=== PATIENT | male | born 1970 | race African-American/Black ===

== ENCOUNTER 2024-02-10 16:01 | Observation (INO) ==
[2024-02-10 20:34] LABS: ABS Eosinophils 0.1 10^3/uL (0.0-0.5); ABS Lymphocytes 3.3 10^3/uL (1.0-4.8); ABS Monocytes 0.6 10^3/uL (0.0-1.1); ABS Neutrophils 3.2 10^3/uL (1.5-7.6); Hemoglobin 9.9 g/dL (13.2-16.3); Lymphocyte % 44.8 %; Mean Corpuscular Hemoglobin 31.2 pg (27-33); Mean Corpuscular Volume 94.6 fL (80-97); Mean Platelet Volume 8.1 fL (7.5-11.2); Platelet Count 330 10^3/uL (150-450); Red Blood Count 3.18 10^6/uL (4.06-5.63); Red Cell Distribution Width 14.1 % (12-17); White Blood Count 7.3 10^3/uL (3.6-10.2)
[2024-02-10 21:02] LABS: Activated Partial Thrombo Time 29.5 seconds (26.0-38.0); INR 0.95 (0.83-1.13)
[2024-02-10 21:06] LABS: ALT 13 U/L (7-52); AST 13 U/L (13-39); Albumin 3.9 g/dL (3.2-5.2); Albumin/Globulin Ratio 1.2 (1-3); Alkaline Phosphatase 78 U/L (35-149); Anion Gap 11 mmol/L (2-16); Blood Urea Nitrogen 23 mg/dL (6-24); C Reactive Protein 3.81 mg/L (<8.01); CO2 Carbon Dioxide 24 mmol/L (22-32); Calcium 9.3 mg/dL (8.6-10.3); Chloride 98 mmol/L (101-111); Creatinine, Serum 1.03 mg/dL (0.67-1.17); Globulin 3.2 g/dL (2-4); Glucose 404 mg/dL (70-100); Potassium 3.6 mmol/L (3.5-5.0); Sodium 133 mmol/L (135-145); Total Bilirubin 0.1 mg/dL (0.2-1.0); Total Protein 7.1 g/dL (6.4-8.9); eGFR CKD-EPI 87.4 (>60)
[2024-02-10] MEDS: Orphenadrine Citrate INJ 30 mg/ml 2 ml VIAL (60 mg) IM ONE (21:58)
[2024-02-10 22:15] LABS: Creatine Kinase 99 U/L (10-223)
[2024-02-10] MEDS ORDERED: Vancomycin 1,000 MG in NS 0.9% 250 ml 250 ML IVPB SCH (23:00)
[2024-02-10 23:15] LABS: Alcohol, S < 13 mg/dL (<13)
[2024-02-10] MEDS: Vancomycin 1,000 MG - ED ONCE IVPB ONE (23:22)
[2024-02-11 01:46] LABS: Urine Benzodiazepine Screen None Detected (None Detect); Urine Cannabinoids Screen None Detected (None Detect); Urine Opiates Screen None Detected (None Detect)
[2024-02-11] MEDS: Iodixanol (CONTRAST) 320 MG/ML 100 ML SDV IV ONE (04:26)
[2024-02-11] MEDS ORDERED: Albuterol HFA INHALER 8 gm MDI INH PRN (05:50)
[2024-02-11 06:26] LABS: ABS Basophils 0.1 10^3/uL (0.0-0.1); ABS Eosinophils 0.2 10^3/uL (0.0-0.5); ABS Lymphocytes 2.8 10^3/uL (1.0-4.8); ABS Monocytes 0.7 10^3/uL (0.0-1.1); ABS Neutrophils 3.5 10^3/uL (1.5-7.6); ABS Nucleated RBC 0.01 10^3/ul; Eosinophil % 2.7 %; Hematocrit 29.1 % (38-53); Hemoglobin 10.2 g/dL (13.2-16.3); Lymphocyte % 38.5 %; Mean Corpuscular Hemoglobin 32.4 pg (27-33); Mean Corpuscular Hgb Conc 35.1 g/dL (31-36); Mean Corpuscular Volume 92.4 fL (80-97); Mean Platelet Volume 7.8 fL (7.5-11.2); Nucleated Red Blood Cells % 0.1 %/100WBC (0.0-0.8); Platelet Count 295 10^3/uL (150-450); Red Blood Count 3.15 10^6/uL (4.06-5.63); Red Cell Distribution Width 14.2 % (12-17); White Blood Count 7.2 10^3/uL (3.6-10.2)
[2024-02-11] MEDS: Enoxaparin 40 MG/0.4 ML SYR SUBCUT SCH (06:41)
[2024-02-11 07:04] LABS: Albumin 3.4 g/dL (3.2-5.2); Albumin/Globulin Ratio 1.1 (1-3); Creatinine, Serum 0.93 mg/dL (0.67-1.17); Globulin 3.1 g/dL (2-4); Magnesium 1.5 mg/dL (1.9-2.7); Potassium 4.1 mmol/L (3.5-5.0); Total Bilirubin 0.3 mg/dL (0.2-1.0); Total Protein 6.5 g/dL (6.4-8.9); eGFR CKD-EPI 98.8 (>60)
[2024-02-11] MEDS ORDERED: Dextrose 50% Syringe 50 ml 25 GM/50 ML SYRINGE IV PUSH PRN (07:12)
[2024-02-11] MEDS: Insulin GLARGINE 100 un/ml 10 ml VIAL SUBCUT SCH (10:27)
[2024-02-12 09:21] LABS: Ferritin 19.5 ng/mL (24-336)
[2024-02-12] MEDS: Ferric Gluconate IV 250 MG in NS 0.9% 250 ml 200 ML IVPB SCH (11:01)
[2024-02-12 13:28] VITALS: BP 159/76
[2024-02-12 17:42] LABS: % CD3 84 % (58-86); % CD4 30 % (32-64); % CD8 49 % (11-40); 4/8 H/S Ratio 0.6 (>=0.9); Absolute CD45 Count 3.29 thou/mcL (0.82-2.84); CD3 2751 cells/mcL (550-2202); CD4 995 cells/mcL (365-1437); CD8 1629 cells/mcL (117-846)
== END 2024-02-12 14:30 | disposition home or self-care (01) ==
LOC: EDHOLD 16:01 → ED 16:01 → SUATTDRO 02-11 05:49 → MED 02-11 16:43
PROVIDERS: ADMIT Internal Medicine; ATTEND Student in an Organized Health Care Education/Training Program

== ENCOUNTER 2024-03-10 22:37 | Observation (INO) ==
[2024-03-10 23:28] LABS: Venous Bicarbonate HCO3 25.3 mmol/L (24-28)
[2024-03-10 23:30] LABS: ABS Basophils 0.2 10^3/uL (0.0-0.1); ABS Lymphocytes 2.1 10^3/uL (1.0-4.8); ABS Monocytes 0.9 10^3/uL (0.0-1.1); ABS Neutrophils 8.4 10^3/uL (1.5-7.6); ABS Nucleated RBC 0.01 10^3/ul; Eosinophil % 0.4 %; Hematocrit 32.5 % (38-53); Hemoglobin 10.5 g/dL (13.2-16.3); Lymphocyte % 17.8 %; Mean Corpuscular Hemoglobin 30.6 pg (27-33); Mean Corpuscular Hgb Conc 32.4 g/dL (31-36); Mean Corpuscular Volume 94.5 fL (80-97); Mean Platelet Volume 9.3 fL (7.5-11.2); Nucleated Red Blood Cells % 0.1 %/100WBC (0.0-0.8); Platelet Count 223 10^3/uL (150-450); Red Blood Count 3.44 10^6/uL (4.06-5.63); Red Cell Distribution Width 13.8 % (12-17); White Blood Count 11.5 10^3/uL (3.6-10.2)
[2024-03-10 23:45] LABS: INR 1.02 (0.83-1.13)
[2024-03-10 23:58] LABS: Albumin/Globulin Ratio 1.1 (1-3); Calcium 9.9 mg/dL (8.6-10.3); Creatinine, Serum 2.39 mg/dL (0.67-1.17); Globulin 3.5 g/dL (2-4); Potassium 4.7 mmol/L (3.5-5.0); Total Bilirubin 0.4 mg/dL (0.2-1.0); Total Protein 7.5 g/dL (6.4-8.9); eGFR CKD-EPI 31.8 (>60)
[2024-03-11] MEDS: Lactated Ringers 1000 ml BAG 2,000 ML IV ONE (00:16)
[2024-03-11 00:56] LABS: High Sensitivity Troponin 1 Hr 9 pg/mL (<20)
[2024-03-11] MEDS ORDERED: Senna TAB 8.6 mg TAB PO PRN (01:36)
[2024-03-11] MEDS ORDERED: Polyethylene Glycol 3350 17 GM PACKET PO PRN (01:36)
[2024-03-11] MEDS: Insulin GLARGINE 100 un/ml 10 ml VIAL SUBCUT ONE (01:43)
[2024-03-11] MEDS ORDERED: Dextrose 50% Syringe 50 ml 25 GM/50 ML SYRINGE IV PUSH PRN (01:49)
[2024-03-11] MEDS ORDERED: Albuterol HFA INHALER 8 gm MDI INH PRN (02:40)
[2024-03-11 05:38] LABS: ABS Eosinophils 0.1 10^3/uL (0.0-0.5); ABS Lymphocytes 3.1 10^3/uL (1.0-4.8); ABS Monocytes 0.7 10^3/uL (0.0-1.1); ABS Neutrophils 5.9 10^3/uL (1.5-7.6); Eosinophil % 0.6 %; Hematocrit 30.3 % (38-53); Hemoglobin 10.4 g/dL (13.2-16.3); Lymphocyte % 31.7 %; Mean Corpuscular Hemoglobin 31.9 pg (27-33); Mean Corpuscular Hgb Conc 34.5 g/dL (31-36); Mean Corpuscular Volume 92.4 fL (80-97); Mean Platelet Volume 8.3 fL (7.5-11.2); Platelet Count 207 10^3/uL (150-450); Red Blood Count 3.28 10^6/uL (4.06-5.63); Red Cell Distribution Width 13.9 % (12-17); White Blood Count 9.7 10^3/uL (3.6-10.2)
[2024-03-11 06:03] LABS: Calcium 9.6 mg/dL (8.6-10.3); Creatinine, Serum 1.59 mg/dL (0.67-1.17); Potassium 3.9 mmol/L (3.5-5.0); eGFR CKD-EPI 51.9 (>60)
[2024-03-11] MEDS: Aspirin EC 81 mg TAB.EC (enteric coated) PO SCH (09:24)
[2024-03-11] MEDS: Dextran 70/Hypromellose Tears Eye Drops 15 ml BTL (for Artificials Tears) RIGHT EYE SCH (09:25)
[2024-03-11] MEDS: Lidocaine PATCH 5% PATCH TRANSDERM SCH (09:26)
[2024-03-11] MEDS: Sulfur Hexaflouride MICROSPHR 25 MG VIAL IV ONE (09:29)
[2024-03-11] MEDS: Cholecalciferol (VIT D3) 1,000 unit TAB PO SCH (09:32)
[2024-03-11] MEDS: SPIRIVA Respimat (tiotropium) 2.5 mcg/inh Inhaler INH SCH (10:29)
[2024-03-11] MEDS: Insulin GLARGINE 100 un/ml 10 ml VIAL SUBCUT SCH (10:42)
[2024-03-11] MEDS: Lactated Ringers 1000 ml BAG 1,000 ML IV SCH (12:29)
[2024-03-11 14:47] VITALS: BP 119/62
[2024-03-11 15:01] LABS: Urine Appearance Clear; Urine Bilirubin Negative (Negative); Urine Blood Negative (Negative); Urine Color Light-Yellow; Urine Glucose 4+ (>=1000 mg/dL) (Negative); Urine Ketones Negative (Negative); Urine Nitrite Negative (Negative); Urine Protein Negative (Negative); Urine Urobilinogen Negative (Negative)
== END 2024-03-11 16:50 | disposition home or self-care (01) ==
LOC: EDHOLD 22:37 → ED 22:37 → EDHOLD 03-11 18:47
PROVIDERS: ADMIT Internal Medicine; ATTEND Internal Medicine

== ENCOUNTER 2024-03-16 15:44 | Observation (INO) ==
[2024-03-16 16:06] LABS: ABS Basophils 0.1 10^3/uL (0.0-0.1); ABS Lymphocytes 2.1 10^3/uL (1.0-4.8); ABS Monocytes 0.7 10^3/uL (0.0-1.1); ABS Neutrophils 4.2 10^3/uL (1.5-7.6); Eosinophil % 0.2 %; Hematocrit 30.1 % (38-53); Hemoglobin 10.1 g/dL (13.2-16.3); Lymphocyte % 29.9 %; Mean Corpuscular Hemoglobin 31.7 pg (27-33); Mean Corpuscular Hgb Conc 33.4 g/dL (31-36); Mean Corpuscular Volume 94.9 fL (80-97); Mean Platelet Volume 8.9 fL (7.5-11.2); Nucleated Red Blood Cells % 0.1 %/100WBC (0.0-0.8); Platelet Count 241 10^3/uL (150-450); Red Blood Count 3.18 10^6/uL (4.06-5.63); Red Cell Distribution Width 13.9 % (12-17); White Blood Count 7.1 10^3/uL (3.6-10.2)
[2024-03-16 16:13] LABS: INR 0.99 (0.83-1.13)
[2024-03-16 17:15] LABS: Albumin 3.8 g/dL (3.2-5.2); Albumin/Globulin Ratio 1.1 (1-3); Calcium 9.1 mg/dL (8.6-10.3); Globulin 3.5 g/dL (2-4); Potassium 4.4 mmol/L (3.5-5.0); Total Bilirubin 0.5 mg/dL (0.2-1.0); Total Protein 7.3 g/dL (6.4-8.9)
[2024-03-16 17:49] LABS: Venous Bicarbonate HCO3 26.4 mmol/L (24-28)
[2024-03-16] MEDS: Lactated Ringers 1000 ml BAG IV.FLUID IV ONE (17:52)
[2024-03-16 18:00] LABS: High Sensitivity Troponin 1 Hr 5 pg/mL (<20)
[2024-03-16] MEDS ORDERED: Dextrose 50% Syringe 50 ml 25 GM/50 ML SYRINGE IV PUSH PRN (18:13)
[2024-03-16] MEDS: NORMOSOL-R pH 7.4 1000 mL BAG 1,000 ML IV ONE (18:25)
[2024-03-16 18:28] LABS: Creatinine, Serum 1.5 mg/dL (0.67-1.17); eGFR CKD-EPI 55.7 (>60)
[2024-03-16] MEDS: Insulin Infusion 100unit/100mL 100 UNIT/100 ML BAG IV SCH (19:26)
[2024-03-16 21:09] LABS: Osmolality Serum 306 mOsm/kg (275-295)
[2024-03-16] MEDS ORDERED: Albuterol HFA INHALER 8 gm MDI INH PRN (21:42)
[2024-03-16] MEDS: Insulin GLARGINE 100 un/ml 10 ml VIAL SUBCUT SCH (22:39)
[2024-03-17] MEDS ORDERED: Dextrose 50% Syringe 50 ml 25 GM/50 ML SYRINGE IV PUSH PRN (00:16)
[2024-03-17 00:22] LABS: Glucose Confirmatory 456 mg/dL (70-100)
[2024-03-17] MEDS: Enoxaparin 40 MG/0.4 ML SYR SUBCUT SCH (02:30)
[2024-03-17 05:53] LABS: Hematocrit 28.2 % (38-53); Hemoglobin 9.6 g/dL (13.2-16.3); Mean Corpuscular Hemoglobin 31.4 pg (27-33); Mean Corpuscular Hgb Conc 34.2 g/dL (31-36); Mean Corpuscular Volume 91.8 fL (80-97); Mean Platelet Volume 7.8 fL (7.5-11.2); Platelet Count 261 10^3/uL (150-450); Red Blood Count 3.07 10^6/uL (4.06-5.63); Red Cell Distribution Width 13.8 % (12-17); White Blood Count 7.4 10^3/uL (3.6-10.2)
[2024-03-17 06:16] LABS: ABS Basophils 0.1 10^3/uL (0.0-0.1); ABS Eosinophils 0.1 10^3/uL (0.0-0.5); ABS Lymphocytes 2.3 10^3/uL (1.0-4.8); ABS Monocytes 1.1 10^3/uL (0.0-1.1); ABS Neutrophils 3.9 10^3/uL (1.5-7.6); ABS Nucleated RBC 0.01 10^3/ul; Eosinophil % 1.1 %; Nucleated Red Blood Cells % 0.1 %/100WBC (0.0-0.8)
[2024-03-17 06:25] LABS: Urine Appearance Clear; Urine Bilirubin Negative (Negative); Urine Blood Negative (Negative); Urine Color Light-Yellow; Urine Glucose 4+ (>=1000 mg/dL) (Negative); Urine Ketones Negative (Negative); Urine Nitrite Negative (Negative); Urine Protein Negative (Negative); Urine Specific Gravity 1.027 (1.002-1.030); Urine Urobilinogen Negative (Negative); Urine pH 6.5 (5.0-8.0)
[2024-03-17 06:29] LABS: Calcium 9.2 mg/dL (8.6-10.3); Creatinine, Serum 0.9 mg/dL (0.67-1.17); Magnesium 1.8 mg/dL (1.9-2.7); Potassium 3.9 mmol/L (3.5-5.0); eGFR CKD-EPI 102.8 (>60)
[2024-03-17] MEDS: Dextran 70/Hypromellose Tears Eye Drops 15 ml BTL (for Artificials Tears) RIGHT EYE SCH (09:19)
[2024-03-17] MEDS: Aspirin EC 81 mg TAB.EC (enteric coated) PO SCH (09:58)
[2024-03-17] MEDS: DARUNAVIR COBI EMTRI TENOF ALA PO SCH ×2 (10:01→22:03)
[2024-03-17] MEDS: Magnesium Sulfate 2 gm BAG 2 GM/50 ML BAG IVPB ONE (10:29)
[2024-03-17] MEDS: SPIRIVA Respimat (tiotropium) 2.5 mcg/inh Inhaler INH SCH (11:16)
[2024-03-17] MEDS: NORMOSOL-R pH 7.4 1000 mL BAG 1,000 ML IV SCH (12:29)
[2024-03-17] MEDS: Insulin GLARGINE 100 un/ml 10 ml VIAL SUBCUT SCH (23:57)
[2024-03-18 06:24] LABS: Hematocrit 27.6 % (38-53); Hemoglobin 9.5 g/dL (13.2-16.3); Mean Corpuscular Hemoglobin 31.9 pg (27-33); Mean Corpuscular Hgb Conc 34.3 g/dL (31-36); Mean Platelet Volume 8.3 fL (7.5-11.2); Platelet Count 272 10^3/uL (150-450); Red Blood Count 2.97 10^6/uL (4.06-5.63); Red Cell Distribution Width 13.8 % (12-17); White Blood Count 6.5 10^3/uL (3.6-10.2)
[2024-03-18 06:42] LABS: Calcium 8.7 mg/dL (8.6-10.3); Creatinine, Serum 0.85 mg/dL (0.67-1.17); Magnesium 1.6 mg/dL (1.9-2.7); Potassium 3.9 mmol/L (3.5-5.0); eGFR CKD-EPI 104.6 (>60)
[2024-03-18 07:42] LABS: ABS Eosinophils 0.1 10^3/uL (0.0-0.5); ABS Lymphocytes 1.7 10^3/uL (1.0-4.8); ABS Monocytes 0.8 10^3/uL (0.0-1.1); ABS Neutrophils 3.9 10^3/uL (1.5-7.6); Eosinophil % 1.4 %; Lymphocyte % 25.5 %; Nucleated Red Blood Cells % 0.1 %/100WBC (0.0-0.8)
[2024-03-18] MEDS: Magnesium Sulf 4 GM/100 ML IV 4,000 MG/100 ML BAG IVPB ONE (08:45)
[2024-03-18] MEDS ORDERED: Aminophylline 25 MG/ML VIAL ONE (09:05)
[2024-03-18] MEDS ORDERED: Regadenoson 0.4 MG/5 ML SYRINGE ONE (09:05)
[2024-03-18 15:07] VITALS: BP 123/66
== END 2024-03-18 16:00 | disposition home or self-care (01) ==
LOC: ED 15:44 → EDHOLD 15:44 → SUATTDRO 20:22 → MEDTELE 03-17 15:43
PROVIDERS: ADMIT Hospitalist; ATTEND Internal Medicine

== ENCOUNTER 2024-04-01 13:34 | Observation (INO) ==
[2024-04-01] MEDS ORDERED: Heparin 5000 UNITS/ML 1 mL VIAL IV SCH (14:00)
[2024-04-01 14:05] LABS: ABS Basophils 0.1 10^3/uL (0.0-0.1); ABS Lymphocytes 2.4 10^3/uL (1.0-4.8); ABS Monocytes 0.4 10^3/uL (0.0-1.1); ABS Neutrophils 4.4 10^3/uL (1.5-7.6); Eosinophil % 0.5 %; Hematocrit 31.4 % (38-53); Hemoglobin 10.8 g/dL (13.2-16.3); Lymphocyte % 32.6 %; Mean Corpuscular Hgb Conc 34.3 g/dL (31-36); Mean Corpuscular Volume 93.3 fL (80-97); Mean Platelet Volume 8.1 fL (7.5-11.2); Platelet Count 302 10^3/uL (150-450); Red Blood Count 3.37 10^6/uL (4.06-5.63); White Blood Count 7.3 10^3/uL (3.6-10.2)
[2024-04-01 14:12] LABS: INR 1.1 (0.83-1.13)
[2024-04-01] MEDS ORDERED: Midazolam 5 mg/5 ml VIAL 1 mg/ml 5 ml VIAL (5 mg) ONE ×2 (14:14→15:01)
[2024-04-01] MEDS ORDERED: fentaNYL 100 mcg/2 ml 50 MCG/ML VIAL ONE ×2 (14:15→15:01)
[2024-04-01] MEDS ORDERED: nitroGLYCERIN DRIP 25,000 MCG/250 ML BTL ONE (14:15)
[2024-04-01] MEDS ORDERED: Iohexol 350 (CONTRAST) 200 ML MDV IV ONE (14:15)
[2024-04-01] MEDS ORDERED: Lidocaine 1% MPF 5 ML VIAL ONE (14:15)
[2024-04-01] MEDS ORDERED: Heparin 2 UNITS/ML 1000 mls 2,000 ML IV ONE (14:15)
[2024-04-01] MEDS ORDERED: Heparin 1,000 UNIT/ML 10 ml (10,000 UNITS) CATHLAB/DIALYSIS ONE (14:15)
[2024-04-01 14:34] LABS: Albumin 3.9 g/dL (3.2-5.2); Albumin/Globulin Ratio 1.1 (1-3); Calcium 10.3 mg/dL (8.6-10.3); Creatinine, Serum 1.24 mg/dL (0.67-1.17); Globulin 3.5 g/dL (2-4); Potassium 4.3 mmol/L (3.5-5.0); Total Bilirubin 0.4 mg/dL (0.2-1.0); Total Protein 7.4 g/dL (6.4-8.9)
[2024-04-01] MEDS: NS 0.9% 1000 ml BAG 500 ML IV ONE (15:35)
[2024-04-01 15:53] LABS: High Sensitivity Troponin 1 Hr 6 pg/mL (<20)
[2024-04-01] MEDS: Heparin DRIP 25,000 UNITS BAG 25,000 UNITS/250 ML BAG IV SCH (15:57)
[2024-04-01] MEDS ORDERED: Albuterol HFA INHALER 8 gm MDI INH PRN (17:21)
[2024-04-01] MEDS ORDERED: SULF BOTH EYES PRN (17:21)
[2024-04-01] MEDS ORDERED: Dextrose 50% Syringe 50 ml 25 GM/50 ML SYRINGE IV PUSH PRN (17:21)
[2024-04-01] MEDS: NS 0.9% 1000 ml BAG 1,000 ML IV ONE (17:42)
[2024-04-01] MEDS: Insulin GLARGINE 100 un/ml 10 ml VIAL SUBCUT SCH (21:15)
[2024-04-02 05:49] LABS: ABS Eosinophils 0.1 10^3/uL (0.0-0.5); ABS Lymphocytes 2.9 10^3/uL (1.0-4.8); ABS Monocytes 0.5 10^3/uL (0.0-1.1); ABS Neutrophils 2.4 10^3/uL (1.5-7.6); Hematocrit 30.2 % (38-53); Hemoglobin 10.3 g/dL (13.2-16.3); Lymphocyte % 49.5 %; Mean Corpuscular Hemoglobin 31.7 pg (27-33); Mean Corpuscular Volume 93.2 fL (80-97); Mean Platelet Volume 8.3 fL (7.5-11.2); Nucleated Red Blood Cells % 0.1 %/100WBC (0.0-0.8); Platelet Count 276 10^3/uL (150-450); Red Blood Count 3.24 10^6/uL (4.06-5.63); Red Cell Distribution Width 15.1 % (12-17)
[2024-04-02] MEDS: SPIRIVA Respimat (tiotropium) 2.5 mcg/inh Inhaler INH SCH (07:29)
[2024-04-02] MEDS: Aspirin EC 81 mg TAB.EC (enteric coated) PO SCH (09:32)
[2024-04-02] MEDS: DARUNAVIR COBI EMTRI TENOF ALA PO SCH (09:36)
[2024-04-02] MEDS ORDERED: Calcium Carb (TUMS) 500 mg CHEW TAB PO PRN (09:46)
[2024-04-02 10:10] LABS: Calcium 8.7 mg/dL (8.6-10.3); Creatinine, Serum 0.88 mg/dL (0.67-1.17); Potassium 4.3 mmol/L (3.5-5.0); eGFR CKD-EPI 103.5 (>60)
[2024-04-02] MEDS ORDERED: Lidocaine PATCH 5% PATCH TRANSDERM PRN (11:21)
[2024-04-02 14:00] VITALS: BP 132/80
== END 2024-04-02 16:15 | disposition home or self-care (01) ==
LOC: ED 13:34 → CHICATH 14:45 → MEDTELE 14:45 → SUATTDRO 18:07
PROVIDERS: ADMIT Internal Medicine; ATTEND Student in an Organized Health Care Education/Training Program